=== PATIENT | female | born 1970 | race Caucasian/White ===

== ENCOUNTER 2024-04-26 11:45 | Inpatient (IN) | payer MEDICAID, OTHER ==
[~2024-04-26] VITALS: Ht 154.9 cm; Wt 95.4 kg
[2024-04-26] VITALS (57 sets, daily range): BP systolic 33–150; BP diastolic 15–78; PULSE 63–131; RESP 14–24; TEMP 97.9–99; O2SAT 92–100
[2024-04-26] MEDS: SODIUM CHLORIDE 0.9% 1,000 ML IV ONE (12:07)
[2024-04-26 12:18] LABS: Basophils # (auto) 0 10 ^3/uL (0-0.2); Basophils % (auto) 0.5 % (0.0-2.0); Eosinophils # (auto) 0.1 10 ^3/uL (0-0.8); Eosinophils % (auto) 1.8 % (0.0-7.0); Hematocrit 40.5 % (36.0-46.0); Hemoglobin 13.9 g/dL (12.2-16.2); Lymphocytes % (auto) 24.4 % (10.0-50.0); Mean Corpuscular Hemoglobin 29.3 pg (28.0-32.0); Mean Corpuscular Hgb Conc. 34.3 g/dL (32.0-36.0); Mean Corpuscular Volume 85.5 fL (80.0-100.0); Monocytes # (auto) 0.6 10 ^3/uL (0-1.3); Monocytes % (auto) 7.2 % (0.0-12.0); Neutrophils # (auto) 5.3 10 ^3/uL (1.6-8.6); Neutrophils % (auto) 66.1 % (37.0-80.0); Nucleated Red Blood Cells % 0.1 %; Red Blood Cells 4.74 10^6/uL (4.0-5.20); Red Cell Distribution Width 12.9 % (11.8-14.3); White Blood Cell 8.1 10^3/uL (4.4-10.8)
[2024-04-26 12:34] LABS: INR 1.02 (0.9-1.15); Partial Thromboplastin Time 27.9 SEC (24.5-34.5); Prothrombin Time 10.8 sec (9.3-11.8)
[2024-04-26 12:39] LABS: Alanine Aminotransferase 17 U/L (7-40); Albumin 3.6 g/dL (3.2-4.8); Alkaline Phosphatase 72 U/L (46-116); Anion Gap 5 (5-15); Aspartate Aminotransferase 19 U/L (13-40); BUN/Creatinine Ratio 10.1 (10.0-20.0); Blood Urea Nitrogen 9 mg/dL (9-23); Calcium 8.7 mg/dL (8.7-10.4); Carbon Dioxide 26 mmol/L (20-30); Chloride 109 mmol/L (98-107); Glucose 100 mg/dL (74-106); Potassium 4.4 mmol/L (3.5-5.1); Sodium 140 mmol/L (136-145)
[2024-04-26 12:40] LABS: Bilirubin, Total 0.3 mg/dL (0.2-1.0); Total Protein 6.3 g/dL (5.7-8.2)
[2024-04-26 12:51] LABS: Magnesium 1.8 mg/dL (1.6-2.6)
[2024-04-26] MEDS: HEPARIN SODIUM (PORCINE) 5000 UNITS/ML 1ML VIAL IV ONE (13:02)
[2024-04-26] MEDS: ASPirin 81 mg TAB PO ONE (13:03)
[2024-04-26] MEDS: NOREPINEPHRINE 8 MG/250ML KIT 250 ML IV SCH ×2 (13:05→16:00)
[2024-04-26] MEDS: NOREPINEPHRINE 8 MG/250ML KIT 250 ML IV ONE (13:18)
[2024-04-26] MEDS: HEPARIN DRIP/D5W 100UNITS/ML 250 ML IV SCH ×2 (13:18→21:30)
[2024-04-26] MEDS ORDERED: NITROGLYCERIN 0.4 MG SL TAB SL PRN (13:45)
[2024-04-26] MEDS: MORPHINE SULFATE INJ 2 MG/ml SYRG IV PRN (13:47)
[2024-04-26] MEDS: ONDANSETRON HCL 4 MG/2 ML VIAL IV ONE ×2 (13:57→13:58)
[2024-04-26] MEDS: DOPamine 1600MCG/ML D5W 250 ML IV ONE (14:02)
[2024-04-26] MEDS: IODIXANOL 320MG/ML 100ML BTL IV ONE (14:06)
[2024-04-26] MEDS: HEPARIN IN NS 1000Units/500mL 1,500 ML ONE (14:07)
[2024-04-26] MEDS: ANGIOMAX 250 MG VIAL IV ONE (14:13)
[2024-04-26] MEDS: SODIUM CHL 0.9% 0 ML ONE (14:13)
[2024-04-26] MEDS: LIDOCAINE 2%HCL (LOCAL ANESTH.) INJ 20ML MDV ONE (14:14)
[2024-04-26] MEDS ORDERED: ATROPINE SULF 1 MG/10ml SYR IV ONE (14:26)
[2024-04-26 14:33] LABS: Triglycerides 171 mg/dL (< 150)
[2024-04-26 14:34] LABS: LDL Cholesterol 81 mg/dL (< 100)
[2024-04-26 14:35] LABS: Cholesterol 140 mg/dL (< 200); HDL Cholesterol 41 mg/dL (40-59)
[2024-04-26] MEDS: HEPARIN SODIUM (PORCINE) 5000 UNITS/ML 1ML VIAL ONE (14:49)
[2024-04-26] MEDS: ONDANSETRON HCL 4 MG/2 ML VIAL ONE (14:54)
[2024-04-26] MEDS ORDERED: ONDANSETRON HCL 4 MG/2 ML VIAL IV PRN ×2 (15:00→17:00)
[2024-04-26] MEDS: FUROSEMIDE 20 MG/2 ML VIAL ONE (15:02)
[2024-04-26] MEDS: MORPHINE SULFATE 4 MG/ML SYR/VIAL ONE (15:04)
[2024-04-26] MEDS: ETOMIDATE (2MG/ML) 20ML VIAL IV ONE (15:14)
[2024-04-26] MEDS: SUCCINYLCHOLINE CHLORIDE 20 MG/ML 10ML VIAL IV ONE (15:14)
[2024-04-26] MEDS: fentaNYL Drip 2500mCg/250mlNS 250 ML IV ONE (15:37)
[2024-04-26] MEDS ORDERED: MIDAZOLAM DRIP 50 mg/50mL 50 ML IV SCH (16:00)
[2024-04-26] MEDS: fentaNYL Drip 2500mCg/250mlNS 250 ML IV SCH (16:00)
[2024-04-26] MEDS: DOPamine 1600MCG/ML D5W 250 ML IV SCH (16:00)
[2024-04-26] MEDS: MIDAZOLAM DRIP 50 mg/50mL 50 ML IV ONE (16:02)
[2024-04-26] MEDS: MIDAZOLAM DRIP 50 mg/50mL 50 ML IV SCH (16:05)
[2024-04-26] MEDS: MIDAZOLAM HCL 2MG/2ML 2ml VIAL (1mg/ml) ONE (16:05)
[2024-04-26 16:42] LABS: Base Excess -14.6 mmol/L (-2.0-2.0)
[2024-04-26] MEDS: SODIUM BICARB 8.4% 50Meq/50ml SYR Vial IV ONE ×2 (17:07→17:11)
[2024-04-26 17:10] LABS: Urine Bacteria None Seen /hpf (None Seen)
[2024-04-26] MEDS ORDERED: SODIUM BICARB 50mEq/50ml Vial 150 ML in D5W 5% 1,000 ML IV SCH (17:15)
[2024-04-26] MEDS: MAGNESIUM SULFATE 1GM/100ML 100 ML IV ONE (17:21)
[2024-04-26] MEDS: PHENYLEPHRINE IV 250 ML IV SCH (17:21)
[2024-04-26 17:22] LABS: Urine Blood Negative /uL (Negative); Urine Clarity Turbid (Clear); Urine Color Yellow (Yellow); Urine Mucus MODERATE (None Seen); Urine Protein, UAD 1+ (Negative); Urine Specific Gravity > 1.050 (1.001-1.035); Urine Urobilinogen 2 mg/dL (Negative); Urine WBC 4 /hpf (0 - 5); Urine pH 5.5 (5.0-9.0)
[2024-04-26] MEDS: PROPOFOL 100 ML IV SCH (18:00)
[2024-04-26] MEDS: SODIUM BICARB 50mEq/50ml Vial 150 ML in D5W 5% 1,000 ML IV SCH (19:15)
[2024-04-26 20:19] LABS: Basophils # (auto) 0 10 ^3/uL (0-0.2); Basophils % (auto) 0.1 % (0.0-2.0); Eosinophils # (auto) 0 10 ^3/uL (0-0.8); Hematocrit 41.7 % (36.0-46.0); Hemoglobin 14.3 g/dL (12.2-16.2); Lymphocytes # (auto) 1.3 10 ^3/uL (0.4-5.4); Lymphocytes % (auto) 7.4 % (10.0-50.0); Mean Corpuscular Hgb Conc. 34.2 g/dL (32.0-36.0); Mean Corpuscular Volume 84.9 fL (80.0-100.0); Monocytes % (auto) 5.7 % (0.0-12.0); Neutrophils # (auto) 15.3 10 ^3/uL (1.6-8.6); Neutrophils % (auto) 86.8 % (37.0-80.0); Red Blood Cells 4.91 10^6/uL (4.0-5.20); Red Cell Distribution Width 12.8 % (11.8-14.3); White Blood Cell 17.6 10^3/uL (4.4-10.8)
[2024-04-26 20:36] LABS: Chloride 108 mmol/L (98-107); Potassium 4.2 mmol/L (3.5-5.1); Sodium 140 mmol/L (136-145)
[2024-04-26 20:37] LABS: Anion Gap 8 (5-15); Carbon Dioxide 24 mmol/L (20-30)
[2024-04-26 20:42] LABS: BUN/Creatinine Ratio 8.2 (10.0-20.0); Blood Urea Nitrogen 8 mg/dL (9-23); Glucose 195 mg/dL (74-106)
[2024-04-26 20:46] LABS: INR 1.09 (0.9-1.15); Prothrombin Time 11.5 sec (9.3-11.8)
[2024-04-26 20:51] LABS: Calcium 7.7 mg/dL (8.7-10.4)
[2024-04-26 20:57] LABS: Partial Thromboplastin Time 77.9 SEC (24.5-34.5)
[2024-04-26 21:19] LABS: Base Excess -0.3 mmol/L (-2.0-2.0)
[2024-04-26] MEDS ORDERED: CLINIMIX PER PHARMACY 0 ML IV SCH (21:30)
[2024-04-26] MEDS: AMINO ACID INFUSION IN D10W 1,000 ML IV SCH (22:00)
[2024-04-26] MEDS: ATORVASTATIN 20 MG TAB PO SCH (22:31)
[2024-04-27] VITALS (201 sets, daily range): BP systolic 28–176; BP diastolic 12–98; PULSE 58–130; RESP 11–24; TEMP 98.4–100.8; O2SAT 74–100
[2024-04-27] MEDS ORDERED: DEXTROSE (50%) 50ML SYRG IV SCH
[2024-04-27] MEDS: ACCU-CHEK COMFORT CURVE STRIP VI SCH (00:53)
[2024-04-27] MEDS: InsuLIN REG 1unit/0.01ml Soln (100units/ml) SC SCH (00:54)
[2024-04-27] MEDS: PHENYLEPHRINE HCL 10 MG/ML VL ONE (01:43)
[2024-04-27] MEDS: PHENYLEPHRINE IV 250 ML IV ONE (01:43)
[2024-04-27] MEDS: PHENYLEPHRINE INJ 80 MG in SODIUM CHL 0.9% 242 ML IV SCH ×2 (01:43→07:45)
[2024-04-27 03:57] LABS: Basophils # (auto) 0.1 10 ^3/uL (0-0.2); Basophils % (auto) 0.6 % (0.0-2.0); Eosinophils # (auto) 0 10 ^3/uL (0-0.8); Eosinophils % (auto) 0.1 % (0.0-7.0); Hematocrit 38.7 % (36.0-46.0); Hemoglobin 13.4 g/dL (12.2-16.2); Lymphocytes # (auto) 3.6 10 ^3/uL (0.4-5.4); Lymphocytes % (auto) 27.5 % (10.0-50.0); Mean Corpuscular Hemoglobin 28.8 pg (28.0-32.0); Mean Corpuscular Hgb Conc. 34.6 g/dL (32.0-36.0); Mean Corpuscular Volume 83.4 fL (80.0-100.0); Monocytes # (auto) 0.7 10 ^3/uL (0-1.3); Monocytes % (auto) 5.6 % (0.0-12.0); Neutrophils # (auto) 8.5 10 ^3/uL (1.6-8.6); Neutrophils % (auto) 66.2 % (37.0-80.0); Red Blood Cells 4.63 10^6/uL (4.0-5.20); Red Cell Distribution Width 13.1 % (11.8-14.3); White Blood Cell 12.9 10^3/uL (4.4-10.8)
[2024-04-27 04:50] LABS: INR 1.11 (0.9-1.15); Partial Thromboplastin Time 50.3 SEC (24.5-34.5); Prothrombin Time 11.7 sec (9.3-11.8)
[2024-04-27 06:29] LABS: Chloride 105 mmol/L (98-107); Sodium 140 mmol/L (136-145)
[2024-04-27 06:32] LABS: Anion Gap 8 (5-15); Carbon Dioxide 27 mmol/L (20-30)
[2024-04-27 06:33] LABS: Calcium 7.4 mg/dL (8.7-10.4)
[2024-04-27 06:37] LABS: Alkaline Phosphatase 64 U/L (46-116)
[2024-04-27 06:38] LABS: Glucose 142 mg/dL (74-106); Magnesium 1.8 mg/dL (1.6-2.6)
[2024-04-27 06:39] LABS: Aspartate Aminotransferase 59 U/L (13-40)
[2024-04-27 06:40] LABS: Bilirubin, Total 0.2 mg/dL (0.2-1.0); Phosphorus 1.9 mg/dL (2.4-5.1); Total Protein 5.3 g/dL (5.7-8.2)
[2024-04-27 06:46] LABS: Alanine Aminotransferase 27 U/L (7-40); Albumin 2.9 g/dL (3.2-4.8); BUN/Creatinine Ratio 11.4 (10.0-20.0); Blood Urea Nitrogen 8 mg/dL (9-23)
[2024-04-27 07:19] LABS: Base Excess 4.4 mmol/L (-2.0-2.0)
[2024-04-27] MEDS: MAGNESIUM SULFATE 1GM/100ML 100 ML IV ONE (08:06)
[2024-04-27] MEDS: POTASSIUM CHL 20MEQ/100ML 100 ML IV SCH (08:07)
[2024-04-27] MEDS: ALBUMIN 25% 50 ML IV SCH (09:27)
[2024-04-27] MEDS ORDERED: ASPirin 81 mg TAB PO SCH (10:00)
[2024-04-27] MEDS: DOXYCYCLINE 100MG/250ML 250 ML IV SCH (10:39)
[2024-04-27 11:49] LABS: INR 1.1 (0.9-1.15); Partial Thromboplastin Time 42.6 SEC (24.5-34.5); Prothrombin Time 11.6 sec (9.3-11.8)
[2024-04-27] MEDS: HEPARIN DRIP/D5W 100UNITS/ML 250 ML IV SCH (12:00)
[2024-04-27 12:15] LABS: Base Excess 2.4 mmol/L (-2.0-2.0)
[2024-04-27] MEDS: SODIUM PHOSPHATES 24 MEQ in SODIUM CHL 0.9% 100 ML IV ONE (12:55)
[2024-04-27] MEDS ORDERED: ACE3T PO (13:17)
[2024-04-27] MEDS ORDERED: LISD40CA3 PO (13:18)
[2024-04-27] MEDS ORDERED: CETI10CA PO (13:18)
[2024-04-27] MEDS ORDERED: ALBU2TAB11 PO (13:18)
[2024-04-27] MEDS: POTASSIUM CHL 20MEQ/100ML 100 ML IV ONE (14:54)
[2024-04-27 18:46] LABS: INR 1.19 (0.9-1.15); Partial Thromboplastin Time 63.7 SEC (24.5-34.5); Prothrombin Time 12.5 sec (9.3-11.8)
[2024-04-27] MEDS: ACETAMINOPHEN 325 MG TAB PO PRN (20:08)
[2024-04-27 20:34] LABS: Potassium 4.2 mmol/L (3.5-5.1)
[2024-04-27 20:40] LABS: Magnesium 1.9 mg/dL (1.6-2.6)
[2024-04-27] MEDS ORDERED: DOBUTamine 1000MCG/ML 250 ML IV SCH ×2 (22:15→22:30)
[2024-04-27] MEDS: FUROSEMIDE 40 MG/4 ML VIAL IV ONE (22:21)
[2024-04-27] MEDS: LEVALBUTEROL HCL 1.25 MG/3 ML NEB NEB SCH (22:24)
[2024-04-27] MEDS: BUDESONIDE (INHALATION) 0.5 MG/2 ML NEB NEB SCH (22:24)
[2024-04-28] VITALS (109 sets, daily range): BP systolic 47–155; BP diastolic 26–102; PULSE 92–128; RESP 14–22; TEMP 99.3–100.6; O2SAT 84–97
[2024-04-28 01:00] LABS: INR 1.15 (0.9-1.15); Partial Thromboplastin Time 63.9 SEC (24.5-34.5); Prothrombin Time 12.1 sec (9.3-11.8)
[2024-04-28] MEDS: DOBUTamine 1000MCG/ML 250 ML IV SCH (03:00)
[2024-04-28 03:56] LABS: Basophils # (auto) 0 10 ^3/uL (0-0.2); Basophils % (auto) 0.2 % (0.0-2.0); Eosinophils # (auto) 0 10 ^3/uL (0-0.8); Eosinophils % (auto) 0.2 % (0.0-7.0); Hematocrit 38.5 % (36.0-46.0); Hemoglobin 13.1 g/dL (12.2-16.2); Lymphocytes # (auto) 2.5 10 ^3/uL (0.4-5.4); Mean Corpuscular Hemoglobin 29.4 pg (28.0-32.0); Mean Corpuscular Hgb Conc. 33.9 g/dL (32.0-36.0); Mean Corpuscular Volume 86.7 fL (80.0-100.0); Monocytes % (auto) 5.9 % (0.0-12.0); Neutrophils # (auto) 14.2 10 ^3/uL (1.6-8.6); Neutrophils % (auto) 79.7 % (37.0-80.0); Red Blood Cells 4.44 10^6/uL (4.0-5.20); Red Cell Distribution Width 13.5 % (11.8-14.3); White Blood Cell 17.8 10^3/uL (4.4-10.8)
[2024-04-28 04:07] LABS: Alanine Aminotransferase 23 U/L (7-40); Albumin 3.8 g/dL (3.2-4.8); Alkaline Phosphatase 69 U/L (46-116); Anion Gap 9 (5-15); Aspartate Aminotransferase 45 U/L (13-40); BUN/Creatinine Ratio 16.7 (10.0-20.0); Blood Urea Nitrogen 13 mg/dL (9-23); Calcium 8.1 mg/dL (8.7-10.4); Carbon Dioxide 22 mmol/L (20-30); Chloride 104 mmol/L (98-107); Glucose 128 mg/dL (74-106); Magnesium 1.8 mg/dL (1.6-2.6); Phosphorus 3.9 mg/dL (2.4-5.1)
[2024-04-28 04:08] LABS: Bilirubin, Total 0.5 mg/dL (0.2-1.0); Total Protein 6.4 g/dL (5.7-8.2)
[2024-04-28 04:09] LABS: Sodium 135 mmol/L (136-145)
[2024-04-28 07:28] LABS: INR 1.17 (0.9-1.15); Partial Thromboplastin Time 57.2 SEC (24.5-34.5); Prothrombin Time 12.3 sec (9.3-11.8)
[2024-04-28] MEDS: DIGOXIN (250MCG/ML) 2 ML AMPULE IV ONE (08:20)
[2024-04-28 08:22] LABS: Base Excess -6.6 mmol/L (-2.0-2.0)
[2024-04-28] MEDS: VASOPRESSIN 20 UNITS in SODIUM CHL 0.9% 99 ML IV SCH (08:25)
[2024-04-28] MEDS: BUMETANIDE 2.5mg/10ml (0.25 mg/ml) INJ IV ONE (08:31)
[2024-04-28] MEDS: FUROSEMIDE 40 MG/4 ML VIAL IV ONE (08:52)
[2024-04-28] MEDS: SODIUM BICARB 8.4% 50Meq/50ml SYR INJ ONE (10:02)
[2024-04-28] MEDS: SODIUM BICARB 8.4% 50Meq/50ml SYR Vial IV ONE (10:02)
[2024-04-28] MEDS: MAGNESIUM SULFATE 1GM/100ML 100 ML IV SCH (10:54)
[2024-04-28 11:26] LABS: Base Excess -4.7 mmol/L (-2.0-2.0)
[2024-04-29] MEDS ORDERED: DIGOXIN (250MCG/ML) 2 ML AMPULE IV SCH (10:00)
== END 2024-04-28 17:20 | disposition short-term general hospital (02) | DRG 190 ==
LOC: EDBD 11:45 → ER 11:54 → OVERFLOW 13:58 → ICU WEST 15:49
PROVIDERS: ADMIT Hospitalist; ATTEND Hospitalist
PROC: 5A02110 Assistance with Cardiac Output using Balloon Pump, Intermittent (ICD-10-PCS; principal; 2024-04-26)
PROC: 02HV33Z Insertion of Infusion Device into Superior Vena Cava, Percutaneous Approach (ICD-10-PCS; 2024-04-26)
PROC: B548ZZA Ultrasonography of Superior Vena Cava, Guidance (ICD-10-PCS; 2024-04-26)
PROC: 5A1945Z Respiratory Ventilation, 24-96 Consecutive Hours (ICD-10-PCS; 2024-04-26)
PROC: 0BH17EZ Insertion of Endotracheal Airway into Trachea, Via Natural or Artificial Opening (ICD-10-PCS; 2024-04-26)
PROC: 03HY32Z Insertion of Monitoring Device into Upper Artery, Percutaneous Approach (ICD-10-PCS; 2024-04-26)
PROC: 4A023N8 Measurement of Cardiac Sampling and Pressure, Bilateral, Percutaneous Approach (ICD-10-PCS; 2024-04-26)
PROC: B211YZZ Fluoroscopy of Multiple Coronary Arteries using Other Contrast (ICD-10-PCS; 2024-04-26)
PROC: B215YZZ Fluoroscopy of Left Heart using Other Contrast (ICD-10-PCS; 2024-04-26)
DX: I21.4 Non-ST elevation (NSTEMI) myocardial infarction (principal); J96.01 Acute respiratory failure with hypoxia; R57.0 Cardiogenic shock; E87.20 Acidosis, unspecified; I95.9 Hypotension, unspecified; E87.4 Mixed disorder of acid-base balance; I42.1 Obstructive hypertrophic cardiomyopathy; E66.9 Obesity, unspecified; E78.5 Hyperlipidemia, unspecified; D72.829 Elevated white blood cell count, unspecified; E83.42 Hypomagnesemia; E87.6 Hypokalemia; G40.909 Epilepsy, unspecified, not intractable, without status epilepticus; Z88.8 Allergy status to other drugs, medicaments and biological substances; Z88.0 Allergy status to penicillin; Z68.38 Body mass index [BMI] 38.0-38.9, adult; Z88.6 Allergy status to analgesic agent; Z82.3 Family history of stroke
CPT/HCPCS: 33967; 36415; 36600; 70450; 71045; 80048; 80053; 80061; 81001; 82805; 82962; 83036; 83605; 83615; 83735; 83880; 84100; 84132; 84443; 84484; 85025; 85610; 85730; 87040; 87070; 87081; 87086; 87205; 93005; 93306; 93460; 93970; 94002; 94003; 94640; 96365; 96375; 99152; G0378; J0330; J2250; J2405; J3480; J3490; Q9967